=== PATIENT | female | born 1955 | race Caucasian/White ===

== ENCOUNTER → 2016-07-16 | Outpatient (CLI) | payer BC | LOC: KOH-I 07-11 08:00 | DX: M81.0 Age-related osteoporosis without current pathological fracture (principal) | CPT/HCPCS: 77080 ==

== ENCOUNTER → 2020-09-05 | Outpatient (CLI) | payer MEDICARE | LOC: KOH-I 08:00 | DX: N83.291 Other ovarian cyst, right side (principal) | CPT/HCPCS: 76856 ==

== ENCOUNTER → 2021-04-16 | Outpatient (CLI) | payer OTHER | LOC: EXRD 08:17 | DX: R93.6 Abnormal findings on diagnostic imaging of limbs (principal); Z91.89 Other specified personal risk factors, not elsewhere classified; M85.88 Other specified disorders of bone density and structure, other site | CPT/HCPCS: 77080 ==